=== PATIENT | male | born 2000 | race Caucasian/White ===

== ENCOUNTER 2020-05-05 09:37 | Emergency (ER) | payer SELFPAY ==
[2020-05-05 09:39] VITALS: BP 152/66; PULSE 92; RESP 14; TEMP 36.1; O2SAT 100; BMI 20.6
--- NOTE | 2020-05-05 09:49 | ED.RN ---
pt c/o pain lt testicle wednesday. alternating tylenol and motrin for pain. denies any dysuria
--- NOTE | 2020-05-05 10:10 | US_ITS ---
STUDY: SCROTUM ULTRASOUND REASON FOR EXAM: Male, 19 years old. Left testicular pain and swelling TECHNIQUE: Ultrasound evaluation of the scrotum was performed with color Doppler and static maurer-scale imaging. COMPARISON: None. FINDINGS: RIGHT TESTICLE INTRATESTICULAR: There is a normal size of the right testicle. The right testicle measures 4.6 x 2.8 x 2.1 cm. There is a homogenous echotexture. There is normal arterial and normal venous vascularity. There is no demonstrated right testicular mass or cyst. EXTRATESTICULAR: The epididymis is normal in size. The epididymis head measures 1.3 x 1.1 cm. There is normal vascularity of the epididymis. There is no demonstrated epididymal cystic structure. There is no demonstrated hydrocele. There is no demonstrated varicocele. There is no demonstrated extratesticular mass or cyst. LEFT TESTICLE INTRATESTICULAR: There is a normal size of the left testicle. The left testicle measures 4.5 x 2.6 x 2.6 cm. There is a homogenous echotexture. There is normal arterial and normal venous vascularity. There is no demonstrated left testicular mass or cyst. EXTRATESTICULAR: The epididymis is enlarged. The epididymis head measures 1.9 x 1.8 cm. There is increased (hyperemic) vascularity of the epididymis. There is a 1.1 cm epididymal cyst. There is no demonstrated hydrocele. There is no demonstrated varicocele. There is no demonstrated extratesticular mass or cyst. US/Testicular with Arterial Flow IMPRESSION: Enlarged and hypervascular left epididymis which is consistent with left-sided epididymitis. Normal bilateral testicles with normal DOPPLER flow. Electronically Signed: Kiko Sahu MD at 10:52 EST Tel , Service support ,
--- NOTE | 2020-05-05 10:12 | ED.DCSUM_ITS ---
- ER Visit Summary Date of Service: 05/05/20 Chief Complaint: Left testicular pain. History of Present Illness: The patient is a 19 M who presents with left testicular pain that has gradually gotten worse over the past 3 days. Patient states it became worse yesterday. Patient describes the pain is constant aching. Patient states the pain is stabbing at times. Patient states the pain radiates into his left lower abdomen. Patient also admits to some mild low back pain. Patient states nothing makes the pain worse and nothing makes the pain better. Patient admits to nausea but denies any vomiting. Patient denies any dysuria or hematuria. Physical Examination: Vital signs are stable. Patient is afebrile. Patient is in no acute distress. Oral mucosa is pink and moist. Neck is supple. Trachea is midline. There is no JVD. Heart was regular rate and rhythm. Lungs are clear and equal bilateral. Abdomen is soft. Bowel sounds are normal. There is some mild left lower quadrant tenderness. There is no rebound or guarding noted. There is no inguinal hernia noted. There is tenderness and edema of the left testicle. There is a vertical lie. Cranial nerves II through XII are intact. There are no focal motor or sensory deficits noted. Extremities are intact. There is no calf tenderness or edema. Test Results: CBC shows a leukocytosis of 19.4. Comprehensive metabolic profile was essentially within normal limits. Urinalysis shows leukocyte esterase of 25 with positive nitrites and 10-25 white blood cells and 2+ bacteria. Testicular ultrasound shows epididymitis of the left testicle. There is no torsion. There is normal Doppler flow to both testicles. This was interpreted by the radiologist and reviewed by myself. GC and Chlamydia cultures were ordered and are pending. Emergency Department Course and Treatment: Patient was given a dose of Rocephin and Zithromax here. Patient was given a prescription for Bactrim. Patient was instructed to follow-up with his primary care physician in 3 to 5 days. Patient and family understood and were agreeable with the plan. All questions were answered. Disposition: Discharge home Impression: 1. Left epididymitis This note was generated with [email or web address] software. It may contain incorrect words, spelling, and punctuation that were not noted in review of the chart prior to signing ED Disposition - Plan for ED Patient: Disposition: Home or Assisted Living Diagnosis: Epididymitis, left Instructions: ED Epididymitis Prescriptions: Smz/Tmp Ds [Bactrim Ds] 1 tab PO BID #20 tab Prescription Printed Ondansetron [Zofran Odt] 4 mg PO Q8H PRN PRN #10 tab PRN Reason: Nausea Prescription Printed Referrals: Miah Hester DO [Primary Care Provider] - 3-5 Days
[2020-05-05 10:46] VITALS: BP 174/95; PULSE 70; RESP 16
[2020-05-05] MEDS: Morphine 4 MG/ML Syringe IV (10:54)
[2020-05-05] MEDS: Ondansetron 4 MG/2 ML Vial IV (10:54)
[2020-05-05 11:04] LABS: Absolute Lymphocyte Count 0.88 X10^3/uL (0.83-4.51); Absolute Neutrophil Count 16.6 X10^3/uL (2.0-7.7); Basophil# 0.04 X10^3/uL; Basophil% 0.2 % (0-1); Eosinophil# 0.03 X10^3/uL; Eosinophils% 0.2 % (0-5); Hematocrit 43.1 % (40-54); Hemoglobin 14.3 g/dL (13.0-16.5); Lymphocyte # 0.88 X10^3/ul (4.0); Lymphocyte % 4.5 % (19-41); Mean Corp Hgb Conc 33.2 g/dL (32-36); Mean Corpuscular Hgb 30.4 pg (27.0-32.0); Mean Corpuscular Volume 91.7 fL (80-94); Mean Platelet Vol. 9.4 fl (6.2-12.0); Monocyte# 1.74 X10^3/uL; NRBC Flagged by Analyzer 0 % (0-5); Neutrophil # 16.57 X10^3/uL (2.7-7.7); Neutrophil % 85.6 % (47-70); POSITIVE DIFFERENTIAL YES; Platelet Count 203 K/mm3 (150-450); RBC Distribution Width CV 12.5 % (11.6-14.6); RBC Distribution Width SD 41.5 fl (35.1-43.9); White Blood Count 19.4 K/mm3 (4.4-11.0)
[2020-05-05 11:04] LABS: Mucous, Urine 0 SEEN /hpf (<or=2+); Red Blood Cells-Urine 0 SEEN /hpf (0-5); Squamous Epithelial Cells - UA 0 SEEN /hpf (0-5)
[2020-05-05 11:11] LABS: Color, Urine Yellow (Yellow); Glucose, Dipstick 50 mg/dl (Normal); Ketone-Dipstick Negative (Negative); Leukocyte Esterase-Dipstick 25 /ul (Negative); Nitrite-Dipstick Positive (Negative); Occult Blood-Urine 25 /ul (Negative); Protein-Dipstick 15 mg/dl (Negative); Specific Gravity, Urine 1.015 (1.002-1.030); Urine Bilirubin Dipstick Negative (Negative); Urine Clarity Sl. Cloudy (Clear); Urine Urobilinogen Normal (Normal)
[2020-05-05 11:12] LABS: Differential Indicated SCAN CRITERIA MET
[2020-05-05 11:18] LABS: Bacteria 2+ /hpf (None Seen); White Blood Cells 10-25 SEEN /hpf (0-5)
[2020-05-05 11:20] LABS: ALB/GLOB Ratio 1.3 RATIO (0.9-2.4); AST(SGOT) 22 U/L (15-37); Alanine Aminotransfer ALT/SGPT 24 U/L (16-61); Albumin, Serum 4.1 g/dL (3.2-5.0); Alkaline Phosphatase 70 U/L (45-117); Anion Gap 8 (5-15); BUN 10 mg/dL (7-18); BUN/Creat Ratio 13.4 RATIO (10-20); Calcium,Total 8.6 mg/dL (8.5-10.1); Chloride 103 mmol/L (98-107); Creatinine, Serum 0.75 mg/dL (0.70-1.30); EST Glomerular Filtration Rate 142 mL/min (>60); Est Glom Filt Rate - Afr Amer 172 mL/min (>60); Estimated Creatinine Clearance 125.93 ml/min; Globulin 3.2 g/dL (2.2-4.2); Glucose 148 mg/dL (74-106); Potassium 3.7 mmol/L (3.5-5.1); Protein, Total 7.3 g/dL (6.4-8.2); Sodium Level 139 mmol/L (136-145)
[2020-05-05] MEDS: Azithromycin 250 MG Tablet 1000 MG PO (11:36)
[2020-05-05 11:46] VITALS: BP 168/81; PULSE 69; RESP 16
[2020-05-05] MEDS: Ceftriaxone 500 MG Vial IM (11:46)
[2020-05-05] MEDS: Ondansetron ODT 4 MG Tablet PO (12:05)
[2020-05-05 13:23] LABS: Chlamydia Trachomatis by PCR Negative (Negative); Neisserai gonorrhoeae by PCR Negative (Negative); Probe Check PASS; Sample Adequacy Control PASS; Specimen Processing Control PASS
--- NOTE | 2020-05-05 20:34 | ED.RN ---
pt was seen here this morning and feels that his pain has not gone away.[id number].
[2020-05-05] MEDS: HYDROcodone Bitartrate/Apap 5/325 Tablet PO (21:15)
[2020-05-06 14:46] LABS: Pathologist Review Reviewed
== END 2020-05-05 21:35 | disposition home or self-care (01) ==
PROVIDERS: Emergency Medicine; Emergency Provider Emergency Medicine; PCP Family Medicine
DX: N45.1 Epididymitis (principal)
CPT/HCPCS: 76870; 80053; 81001; 85025; 87491; 87591; 93976; 96372; 96374; 96375; 99285; A4216; J2405